=== PATIENT | female | born 1945 ===

== ENCOUNTER 2018-05-24 07:40 | Inpatient (IN) | payer MEDICARE, OTHER ==
[2018-05-24] MEDS ORDERED: Penicillin G 5 Million Unit Vial IVPB ONE (08:30)
--- NOTE | 2018-05-24 08:30 | C.PDOC ---
History Of Present Illness 72 y/o female pt with hx of depression, HLD, HTN, DM, and anxiety presents to the ER c/o swelling of the right side of the face and eye. Associated sx includes headache, neck pain and chest pain. Pt's daughter reports pt had a dental cleaning appointment x3 days ago and her face progressively got worse. Pt PMD is Dr. Calin Darby. Pt denies fever and change in vision. Time Seen by Provider: 05/24/18 08:04 Chief Complaint (Nursing): Eye Problem History Per: Patient History/Exam Limitations: no limitations Onset/Duration Of Symptoms: Days (x3) Current Symptoms Are (Timing): Worse Past Medical History Reviewed: Historical Data, Nursing Documentation, Vital Signs Vital Signs: Last Vital Signs Temp 98.7 F 05/24/18 07:48 Pulse 113 H 05/24/18 07:48 Resp 17 05/24/18 07:48 BP 117/79 05/24/18 07:48 Pulse Ox 98 05/24/18 07:48 - Medical History PMH: Anxiety, Arthritis (OSTEOARTHRITIS), Depression, HTN, Hypercholesterolemia Family History: States: No Known Family Hx - Social History Hx Tobacco Use: No Hx Alcohol Use: No Hx Substance Use: No - Immunization History Hx Tetanus Toxoid Vaccination: No Hx Influenza Vaccination: No Hx Pneumococcal Vaccination: No Review Of Systems Except As Marked, All Systems Reviewed And Found Negative. Constitutional: Positive for: Other (swelling of right eye and face). Negative for: Fever Eyes: Negative for: Vision Change Cardiovascular: Positive for: Chest Pain Musculoskeletal: Positive for: Neck Pain Neurological: Positive for: Headache Physical Exam - Physical Exam Appears: Non-toxic, No Acute Distress Skin: Warm, Dry Head: Normacephalic Eye(s): right: Other (infraorbital redness and swelling; tender zygoma; cheek swollwen and tender) Oral Mucosa: Moist Tongue: Normal Appearing Teeth: Other (RU molar: no obvious tooth decay) Gingiva: No Erythema, No Other (drainage) Throat: Normal Neck: Normal ROM, Supple Chest: Symmetrical Cardiovascular: Rhythm Regular Respiratory: Normal Breath Sounds Neurological/Psych: Oriented x3, Normal Speech, Normal Sensation ED Course And Treatment O2 Sat by Pulse Oximetry: 98 (RA) Pulse Ox Interpretation: Normal Medical Decision Making Medical Decision Making: Impression: Dental Abscess Plans: -- blood bank -- CT scan -- chem labs -- blood work -- Cleocin -- Penicillin -- blood cx Disposition - Disposition Forms: [email or web address] (Yoruba) - Scribe Statement The provider has reviewed the documentation as recorded by the Scribe Pam Faustin Provider Attestation: All medical record entries made by the Scribe were at my direction and personally dictated by me. I have reviewed the chart and agree that the record accurately reflects my personal performance of the history, physical exam, medical decision making, and the department course for this patient. I have also personally directed, reviewed, and agree with the discharge instructions and disposition.
[2018-05-24] MEDS ORDERED: Clindamycin 600mg/50ml NS 600 MG/50 ML BAG IVPB ONE (08:47)
[2018-05-24 08:50] LABS: BASO # 0.1 K/uL (0.0-0.2); BASO % 0.4 % (0.0-2.0); EOS % 0.1 % (0.0-4.0); HEMOGLOBIN 16.1 g/dL (11.0-16.0); LYMPH # 2.7 K/uL (1.0-4.3); LYMPH % 20.3 % (20.0-40.0); MEAN CELL VOLUME 79.4 fL (81.0-99.0); MEAN CORPUSCULAR HEMOGLOBIN 26.2 pg (27.0-31.0); MEAN PLATELET VOLUME 7.5 fL (7.2-11.7); MONO # 0.8 K/uL (0.0-0.8); MONO % 6.4 % (0.0-10.0); NEUT # 9.6 K/uL (1.8-7.0); NEUT % 72.8 % (50.0-75.0); NRBC % 0.1 % (0.0-2.0); RBC 6.14 Mil/uL (3.80-5.20); RED CELL DISTRIBUTION WIDTH 15.2 % (11.5-14.5); WHITE BLOOD COUNT 13.2 K/uL (4.8-10.8)
[2018-05-24 08:58] LABS: INR 1.1; PROTHROMBIN TIME 12.2 SECONDS (9.7-12.2)
[2018-05-24 08:59] LABS: ALB/GLOB RATIO 1.3 (1.0-2.1); ALBUMIN 4.5 g/dL (3.5-5.0); ALT/SGPT 35 U/L (9-52); AST/SGOT 28 U/L (14-36); BLOOD UREA NITROGEN 8 mg/dL (7-17); CALCIUM 9.8 mg/dl (8.6-10.4); GFR NON-AFRICAN AMERICAN > 60
[2018-05-24] MEDS ORDERED: Iodixanol 320 MG/ML 100 ML BOTTLE IV ONE (09:11)
--- NOTE | 2018-05-24 10:38 | CT ---
Date of service: 05/24/2018 PROCEDURE: CT MAXILLOFACIAL BONES WITH CONTRAST HISTORY: facial swelling/dental abscess COMPARISON: None. TECHNIQUE: Contiguous axial CT images of the maxillofacial bones were obtained following administration of IV contrast. Coronal and sagittal reformats were generated. Intravenous contrast Dose: 100 mL of Visipaque 320 intravenously Radiation dose: Total exam DLP = 822.89 mGy-cm. This CT exam was performed using one or more of the following dose reduction techniques: Automated exposure control, adjustment of the mA and/or kV according to patient size, and/or use of iterative reconstruction technique. FINDINGS: NASAL BONES: Unremarkable. ORBITS: Unremarkable. PARANASAL SINUSES/ MASTOIDS: There is mild mucosal thickening noted in the right maxillary sinus. MAXILLA: There is lucency noted around the right maxillary canine. There is adjacent said 1.8 x 0.6 centimeter enhancing wall fluid collection suggestive of abscess formation best seen on image 64 series 3. Multiple teeth fillings which somewhat limits the evaluation. MANDIBLE/ TEMPOROMANDIBULAR JOINTS: No evidence of acute pathology SKULL BASE: Unremarkable. TEMPORAL BONES: Middle ears and mastoid grossly unremarkable. OTHER FINDINGS: None. IMPRESSION: Enhancing wall fluid collection adjacent to the right anterior maxilla likely represent abscess formation. Adjacent periodontal lucency likely represent periodontal abscess. Mild right maxillary sinus mucosal thickening.
[2018-05-24 12:04] VITALS: RESP 20
[2018-05-24] MEDS: (Novolin R) Insulin Human Regular 100 units/ml vial SC SCH ×2 (16:53→21:49)
[2018-05-24] MEDS: AMPicillin 2 GM in Sodium Chloride 100 ML IVPB SCH ×2 (17:00→22:48)
[2018-05-24] MEDS: Naproxen 550 mg Tab PO SCH (18:15)
--- NOTE | 2018-05-24 19:11 | CP.PCM.HP ---
Past Patient History - Past Medical History & Family History Past Medical History?: Yes - Past Social History Smoking Status: Never Smoked - CARDIAC Hx Cardiac Disorders: Yes Hx Hypercholesterolemia: Yes Hx Hypertension: Yes - PULMONARY Hx Respiratory Disorders: No - NEUROLOGICAL Hx Neurological Disorder: No - HEENT Hx HEENT Problems: Yes Hx Cataracts: Yes - RENAL Hx Chronic Kidney Disease: No - ENDOCRINE/METABOLIC Hx Endocrine Disorders: Yes Hx Diabetes Mellitus Type 2: Yes - HEMATOLOGICAL/ONCOLOGICAL Hx Blood Disorders: No - INTEGUMENTARY Hx Dermatological Problems: No - MUSCULOSKELETAL/RHEUMATOLOGICAL Hx Arthritis: Yes Hx Falls: No Hx Osteoarthritis: Yes - GASTROINTESTINAL Hx Gastrointestinal Disorders: No - GENITOURINARY/GYNECOLOGICAL Hx Genitourinary Disorders: No - PSYCHIATRIC Hx Anxiety: Yes Hx Depression: Yes Hx Substance Use: No - SURGICAL HISTORY Hx Surgeries: Yes Hx Cataract Extraction: Yes (IMPLANTS) Hx Section: Yes (X2) Hx Eye Surgery: Yes Hx Tubal Ligation: Yes - ANESTHESIA Hx Anesthesia: Yes Hx Anesthesia Reactions: No Hx Malignant Hyperthermia: No Meds Allergies/Adverse Reactions: Allergies Allergy/AdvReac Type Severity Reaction Status Date / Time No Known Allergies Allergy Verified 05/24/18 07:46 Results - Vital Signs Recent Vital Signs: Last Vital Signs Temp 98.9 F 05/24/18 16:00 Pulse 98 H 05/24/18 16:00 Resp 20 05/24/18 16:00 BP 97/69 L 05/24/18 16:00 Pulse Ox 97 05/24/18 16:00 - Labs Result Diagrams: 05/24/18 08:41 05/24/18 08:41 Labs: Laboratory Results - last 24 hr 05/24/18 05/24/18 05/24/18 08:41 08:41 08:41 WBC 13.2 H RBC 6.14 H Hgb 16.1 H Hct 48.8 H MCV 79.4 L MCH 26.2 L MCHC 33.0 RDW 15.2 H Plt Count 267 MPV 7.5 Neut % (Auto) 72.8 Lymph % (Auto) 20.3 [place] % (Auto) 6.4 Eos % (Auto) 0.1 Baso % (Auto) 0.4 Neut # (Auto) 9.6 H Lymph # (Auto) 2.7 [place] # (Auto) 0.8 Eos # (Auto) 0.0 Baso # (Auto) 0.1 PT 12.2 INR 1.1 APTT 28 Sodium 132 Potassium 4.1 Chloride 94 L Carbon Dioxide 22 Anion Gap 21 H BUN 8 Creatinine 0.9 Est GFR ( Amer) > 60 Est GFR (Non-Af Amer) > 60 POC Glucose (mg/dL) Random Glucose 204 H Calcium 9.8 Total Bilirubin 0.9 AST 28 ALT 35 Alkaline Phosphatase 121 Total Protein 8.0 Albumin 4.5 Globulin 3.5 Albumin/Globulin Ratio 1.3 05/24/18 16:45 WBC RBC Hgb Hct MCV MCH MCHC RDW Plt Count MPV Neut % (Auto) Lymph % (Auto) [place] % (Auto) Eos % (Auto) Baso % (Auto) Neut # (Auto) Lymph # (Auto) [place] # (Auto) Eos # (Auto) Baso # (Auto) PT INR APTT Sodium Potassium Chloride Carbon Dioxide Anion Gap BUN Creatinine Est GFR ( Amer) Est GFR (Non-Af Amer) POC Glucose (mg/dL) 340 H Random Glucose Calcium Total Bilirubin AST ALT Alkaline Phosphatase Total Protein Albumin Globulin Albumin/Globulin Ratio
[2018-05-25] MEDS: AMPicillin 2 GM in Sodium Chloride 100 ML IVPB SCH ×4 (04:38→22:30)
--- NOTE | 2018-05-25 06:47 | HP ---
CHIEF COMPLAINT: Right-sided facial swelling, jaw pain. HISTORY OF PRESENT ILLNESS: This is a 72-year-old female, well known to me with history of type 2 diabetes, hypertension, hyperlipidemia, anxiety, and depression. The patient had some dental work done 3 days ago, and she started having right upper gum swelling and then gum swelling extended to the face, and she had large swelling on the face. Along with that, she has intense pain, fever, chills, rigors, foul smell from mouth, generalized weakness, tiredness. She denies any nausea or vomiting. She denies any polyuria, polydipsia, or polyphagia. She denies any hematuria or pyuria. The patient also has pain in the face. She has a headache. She denies any sneezing, itchy eyes, itchy nose. She denies any history of polyuria. She denies any history of trauma to the face. She denies any history of joint pain, knee pain, or back pain. PAST MEDICAL HISTORY: Type 2 diabetes, hypertension, hyperlipidemia, osteoarthritis, anxiety, and depression. SOCIAL HISTORY: Nonsmoker, non-ETOH user. CURRENT MEDICATIONS AT HOME: She takes metformin 500 twice a day, Relafen 500 twice a day, Remeron 30 mg once a day, Lipitor 20 mg once a day, atenolol 50 mg daily, aspirin 81 daily, Elavil 25 daily, Xanax 0.5 b.i.d. p.r.n. ALLERGIES: UNKNOWN ALLERGIES. PHYSICAL EXAMINATION: GENERAL: An elderly female, in no distress with pain, swelling on right side of the face. VITAL SIGNS: Blood pressure 116/80, pulse 90, respiratory rate 20, and temperature 97.9. SKIN: Senile turgor. She has erythema and redness in the right intraorbital area with swelling, tenderness, deformity, and the whole right upper jaw is swollen with inside of the mouth has gum swelling in the upper teeth. HEENT: Atraumatic, normocephalic. Negative pallor. Negative jaundice. Extraocular movements are intact. NECK: Supple. No JVD. No lymph node. No thyromegaly. No carotid bruit. CHEST WALL: Bilateral symmetrical expansion. No tenderness. No deformity. LUNGS: Bilaterally clear. No rales. No rhonchi. CARDIOVASCULAR SYSTEM: PMI not localized. S1, S2, regular. No heave. No thrill. ABDOMEN: Soft, nontender. Bowel sounds are positive. RECTAL: Negative. PELVIC: Negative. EXTREMITIES: No clubbing, cyanosis, or edema. CENTRAL NERVOUS SYSTEM: Awake, alert, oriented x3. Cranial nerves II through XII are normal. Power 5/5 x4. Plantars are downgoing. ASSESSMENT: 1. Abscess in the right upper jaw, most likely it is gram positives and anaerobes. 2. Type 2 diabetes. 3. Hypertension. PLAN: Admit. Detailed orders are written. Seen and examined. Calin Darby MD
[2018-05-25] MEDS: (Novolin R) Insulin Human Regular 100 units/ml vial SC SCH ×4 (08:31→21:47)
[2018-05-25] MEDS: Enoxaparin 40 mg Syringe SC SCH (10:50)
[2018-05-25] MEDS: Naproxen 550 mg Tab PO SCH ×2 (10:50→17:49)
--- NOTE | 2018-05-25 13:17 | CP.PCM.PN ---
Subjective - Subjective Subjective: dictated Objective - Vital Signs/Intake and Output Vital Signs (last 24 hours): Temp Pulse Resp BP Pulse Ox 97.8 F 67 20 110/67 20 L 05/25/18 08:00 05/25/18 08:00 05/25/18 08:00 05/25/18 08:00 05/25/18 08:00 Intake and Output: 05/25/18 05/25/18 06:59 18:59 Intake Total 300 Balance 300 - Medications Medications: Current Medications Alprazolam (Xanax) 0.5 mg PO BID PRN PRN Reason: Anxiety Amitriptyline HCl (Elavil) 25 mg PO DAILY [facility] Last Admin: 05/25/18 10:50 Dose: 25 mg Aspirin (Ecotrin) 81 mg PO DAILY [facility] Last Admin: 05/25/18 10:50 Dose: 81 mg Atenolol (Tenormin) 50 mg PO HS [facility] Last Admin: 05/24/18 21:46 Dose: 50 mg Enoxaparin Sodium (Lovenox) 40 mg SC DAILY [facility] Last Admin: 05/25/18 10:50 Dose: 40 mg Ampicillin 2 gm/ Sodium (Chloride) 100 mls @ 50 mls/hr IVPB Q6H [facility]; Protocol Last Admin: 05/25/18 10:50 Dose: 50 mls/hr Insulin Human Regular (Novolin R) 0 unit SC ACHS [facility]; Protocol Last Admin: 05/25/18 12:02 Dose: Not Given Metformin HCl (Glucophage) 500 mg PO BIDCC [facility] Last Admin: 05/25/18 08:38 Dose: 500 mg Mirtazapine (Remeron) 30 mg PO HS [facility] Last Admin: 05/24/18 21:46 Dose: 30 mg Naproxen (Anaprox Ds) 550 mg PO BID [facility] Last Admin: 05/25/18 10:50 Dose: 550 mg Rosuvastatin Calcium (Crestor) 10 mg PO HS [facility] Last Admin: 05/24/18 21:45 Dose: 10 mg - Labs Labs: 05/24/18 08:41 05/24/18 08:41 PT 12.2 SECONDS (9.7-12.2) 05/24/18 08:41 INR 1.1 05/24/18 08:41 APTT 28 SECONDS (21-34) 05/24/18 08:41
--- NOTE | 2018-05-26 02:49 | PN ---
DATE: 05/25/2018 SUBJECTIVE: She is afebrile, decreased right-sided facial swelling. PHYSICAL EXAMINATION: VITAL SIGNS: Blood pressure 111/73, pulse 89, respiratory rate 20, and temperature 97.6. LUNGS: Clear. CVS: S1 and S2, regular. ABDOMEN: Soft. ASSESSMENT: 1. Right jaw infection, on ampicillin. 2. Hypertension. 3. Diabetes. 4. Anxiety disorder. PLAN: Continue current medication. Monitor the patient. Calin Darby MD
[2018-05-26] MEDS: AMPicillin 2 GM in Sodium Chloride 100 ML IVPB SCH ×4 (05:27→22:18)
[2018-05-26] MEDS: (Novolin R) Insulin Human Regular 100 units/ml vial SC SCH ×4 (08:14→22:21)
[2018-05-26] MEDS: Enoxaparin 40 mg Syringe SC SCH (09:02)
[2018-05-26] MEDS: Naproxen 550 mg Tab PO SCH ×2 (09:03→17:55)
--- NOTE | 2018-05-26 21:04 | CP.PCM.PN ---
Subjective - Subjective Subjective: dictated Objective - Vital Signs/Intake and Output Vital Signs (last 24 hours): Temp Pulse Resp BP Pulse Ox 97.9 F 63 20 133/78 96 05/26/18 16:09 05/26/18 16:09 05/26/18 16:09 18 16:09 05/26/18 16:09 Intake and Output: 05/26/1818 18:59 06:59 Intake Total 850 Balance 850 - Medications Medications: Current Medications Alprazolam (Xanax) 0.5 mg PO BID PRN PRN Reason: Anxiety Amitriptyline HCl (Elavil) 25 mg PO DAILY [facility] Last Admin: 05/26/18 09:03 Dose: 25 mg Aspirin (Ecotrin) 81 mg PO DAILY [facility] Last Admin: 05/26/18 09:03 Dose: 81 mg Atenolol (Tenormin) 50 mg PO HS [facility] Last Admin: 05/25/18 21:33 Dose: 50 mg Enoxaparin Sodium (Lovenox) 40 mg SC DAILY [facility] Last Admin: 05/26/18 09:02 Dose: 40 mg Ampicillin 2 gm/ Sodium (Chloride) 100 mls @ 50 mls/hr IVPB Q6H [facility]; Protocol Last Admin: 05/26/18 17:54 Dose: 50 mls/hr Insulin Human Regular (Novolin R) 0 unit SC ACHS [facility]; Protocol Last Admin: 05/26/18 18:18 Dose: Not Given Metformin HCl (Glucophage) 500 mg PO BIDCC [facility] Last Admin: 05/26/18 18:18 Dose: 500 mg Mirtazapine (Remeron) 30 mg PO HS [facility] Last Admin: 05/25/18 21:33 Dose: 30 mg Naproxen (Anaprox Ds) 550 mg PO BID [facility] Last Admin: 05/26/18 17:55 Dose: 550 mg Rosuvastatin Calcium (Crestor) 10 mg PO HS [facility] Last Admin: 05/25/18 21:33 Dose: 10 mg - Labs Labs: 05/24/18 08:41 05/24/18 08:41 PT 12.2 SECONDS (9.7-12.2) 05/24/18 08:41 INR 1.1 05/24/18 08:41 APTT 28 SECONDS (21-34) 05/24/18 08:41
[2018-05-26 23:32] VITALS: BP 124/70; PULSE 60; TEMP 97.8; O2SAT 98
[2018-05-27] MEDS: AMPicillin 2 GM in Sodium Chloride 100 ML IVPB SCH ×2 (04:41→10:09)
[2018-05-27] MEDS: (Novolin R) Insulin Human Regular 100 units/ml vial SC SCH ×2 (07:29→11:35)
[2018-05-27] MEDS: Naproxen 550 mg Tab PO SCH (09:50)
[2018-05-27] MEDS: Enoxaparin 40 mg Syringe SC SCH (09:51)
--- NOTE | 2018-05-27 12:15 | CP.PCM.PN ---
Subjective - Date & Time of Evaluation Date of Evaluation: 05/27/18 Time of Evaluation: 12:20 Objective - Vital Signs/Intake and Output Vital Signs (last 24 hours): Temp Pulse Resp BP Pulse Ox 97.8 F 60 20 124/70 98 05/26/18 23:28 05/26/18 23:28 05/26/18 23:28 05/26/18 23:28 05/26/18 23:28 Intake and Output: 05/27/18 05/27/18 06:59 18:59 Intake Total 990 Balance 990 - Medications Medications: Current Medications Alprazolam (Xanax) 0.5 mg PO BID PRN PRN Reason: Anxiety Amitriptyline HCl (Elavil) 25 mg PO DAILY [facility] Last Admin: 05/27/18 09:50 Dose: 25 mg Aspirin (Ecotrin) 81 mg PO DAILY [facility] Last Admin: 05/27/18 09:50 Dose: 81 mg Atenolol (Tenormin) 50 mg PO HS [facility] Last Admin: 05/26/18 22:20 Dose: 50 mg Enoxaparin Sodium (Lovenox) 40 mg SC DAILY [facility] Last Admin: 05/27/18 09:51 Dose: Not Given Ampicillin 2 gm/ Sodium (Chloride) 100 mls @ 50 mls/hr IVPB Q6H [facility]; Protocol Last Admin: 05/27/18 10:09 Dose: 50 mls/hr Insulin Human Regular (Novolin R) 0 unit SC ACHS [facility]; Protocol Last Admin: 05/27/18 11:35 Dose: Not Given Metformin HCl (Glucophage) 500 mg PO BIDCC [facility] Last Admin: 05/27/18 07:42 Dose: 500 mg Mirtazapine (Remeron) 30 mg PO HS [facility] Last Admin: 05/26/18 22:21 Dose: 30 mg Naproxen (Anaprox Ds) 550 mg PO BID [facility] Last Admin: 05/27/18 09:50 Dose: 550 mg Rosuvastatin Calcium (Crestor) 10 mg PO HS [facility] Last Admin: 05/26/18 22:19 Dose: 10 mg - Labs Labs: 05/24/18 08:41 05/24/18 08:41 PT 12.2 SECONDS (9.7-12.2) 05/24/18 08:41 INR 1.1 05/24/18 08:41 APTT 28 SECONDS (21-34) 05/24/18 08:41
--- NOTE | 2018-05-27 23:45 | CP.PCM.DIS ---
Provider - Provider Date of Admission: 05/24/18 11:02 Attending physician: Calin Darby MD Hospital Course - Lab Results Lab Results: Micro Results 05/24/18 08:57 Blood Blood Culture - Preliminary NO GROWTH AFTER 3 DAYS 05/24/18 08:41 Blood Blood Culture - Preliminary NO GROWTH AFTER 3 DAYS Most Recent Lab Values WBC 13.2 K/uL (4.8-10.8) H 05/24/18 08:41 RBC 6.14 Mil/uL (3.80-5.20) H 05/24/18 08:41 Hgb 16.1 g/dL (11.0-16.0) H 05/24/18 08:41 Hct 48.8 % (34.0-47.0) H 05/24/18 08:41 MCV 79.4 fL (81.0-99.0) L 05/24/18 08:41 MCH 26.2 pg (27.0-31.0) L 05/24/18 08:41 MCHC 33.0 g/dL (33.0-37.0) 05/24/18 08:41 RDW 15.2 % (11.5-14.5) H 05/24/18 08:41 Plt Count 267 K/uL (130-400) 05/24/18 08:41 MPV 7.5 fL (7.2-11.7) 05/24/18 08:41 Neut % (Auto) 72.8 % (50.0-75.0) 05/24/18 08:41 Lymph % (Auto) 20.3 % (20.0-40.0) 05/24/18 08:41 [place] % (Auto) 6.4 % (0.0-10.0) 05/24/18 08:41 Eos % (Auto) 0.1 % (0.0-4.0) 05/24/18 08:41 Baso % (Auto) 0.4 % (0.0-2.0) 05/24/18 08:41 Neut # (Auto) 9.6 K/uL (1.8-7.0) H 05/24/18 08:41 Lymph # (Auto) 2.7 K/uL (1.0-4.3) 05/24/18 08:41 [place] # (Auto) 0.8 K/uL (0.0-0.8) 05/24/18 08:41 Eos # (Auto) 0.0 K/uL (0.0-0.7) 05/24/18 08:41 Baso # (Auto) 0.1 K/uL (0.0-0.2) 05/24/18 08:41 PT 12.2 SECONDS (9.7-12.2) 05/24/18 08:41 INR 1.1 05/24/18 08:41 APTT 28 SECONDS (21-34) 05/24/18 08:41 Sodium 132 mmol/L (132-148) 05/24/18 08:41 Potassium 4.1 mmol/L (3.6-5.2) 05/24/18 08:41 Chloride 94 mmol/L (98-107) L 05/24/18 08:41 Carbon Dioxide 22 mmol/L (22-30) 05/24/18 08:41 Anion Gap 21 (10-20) H 05/24/18 08:41 BUN 8 mg/dL (7-17) 05/24/18 08:41 Creatinine 0.9 mg/dL (0.7-1.2) 05/24/18 08:41 Est GFR ( Amer) > 60 05/24/18 08:41 Est GFR (Non-Af Amer) > 60 05/24/18 08:41 POC Glucose (mg/dL) 132 mg/dL (65-110) H 05/27/18 10:53 Random Glucose 204 mg/dL (65-105) H 05/24/18 08:41 Calcium 9.8 mg/dl (8.6-10.4) 05/24/18 08:41 Total Bilirubin 0.9 mg/dL (0.2-1.3) 05/24/18 08:41 AST 28 U/L (14-36) 05/24/18 08:41 ALT 35 U/L (9-52) 05/24/18 08:41 Alkaline Phosphatase 121 U/L (38-126) 05/24/18 08:41 Total Protein 8.0 g/dL (6.3-8.3) 05/24/18 08:41 Albumin 4.5 g/dL (3.5-5.0) 05/24/18 08:41 Globulin 3.5 gm/dL (2.2-3.9) 05/24/18 08:41 Albumin/Globulin Ratio 1.3 (1.0-2.1) 05/24/18 08:41 Discharge Plan - Discharge Medications Prescriptions: AMPicillin [Ampicillin] 500 mg PO Q6 #28 cap - Follow Up Plan Condition: GOOD Disposition: HOME/ ROUTINE Instructions: Tooth Abscess (DC), Dental Pain (DC), Ampicillin Additional Instructions: Please f/u with Dr. Darby office in 1 week Please f/u with your Dentist Dr. Ponce office in 1 week continue antibiotics for 7 days If you develop any fever or incr. swelling on face please call Dr. Darby Referrals: Calin Darby MD [Staff Provider] -
== END 2018-05-27 12:50 | disposition home or self-care (01) | DRG 159 ==
LOC: C.ER 07:40 → C.9E 11:02 → C.3T 11:17
PROVIDERS: ADMIT Internal Medicine; ATTEND Internal Medicine
DX: K04.7 Periapical abscess without sinus (principal); M27.2 Inflammatory conditions of jaws; E11.9 Type 2 diabetes mellitus without complications; E78.00 Pure hypercholesterolemia, unspecified; F41.9 Anxiety disorder, unspecified; F32.9 Major depressive disorder, single episode, unspecified; I10 Essential (primary) hypertension; M54.2 Cervicalgia; R07.9 Chest pain, unspecified